=== PATIENT | male | born 1955 | race Caucasian/White ===

== ENCOUNTER 2022-10-19 15:26 | Outpatient (CLI) | payer MEDICARE, SELFPAY ==
--- NOTE | 2022-10-19 15:41 | XR_ITS ---
WS: [id number] Left shoulder, 2 views, 10/19/2022 Clinical Data: Left shoulder pain Comparison: None. Findings: No fractures or dislocations are seen. The AC joint shows mild osteoarthritis. The adjacent left clav icle, left scapula and ribs are normal. The soft tissues are unremarkable. 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
== END 2022-10-19 15:27 | disposition home or self-care (01) ==
LOC: RAD 15:31
PROVIDERS: PCP Family Medicine; Visit Provider Family Medicine
DX: M19.012 Primary osteoarthritis, left shoulder (principal); N40.0 Benign prostatic hyperplasia without lower urinary tract symptoms; Z76.89 Persons encountering health services in other specified circumstances
CPT/HCPCS: 73030; 80053; 84153; 85025